=== PATIENT | female | born 1990 | race Caucasian/White ===

== ENCOUNTER 2021-02-16 23:03 | Emergency (ER) | payer OTHER ==
[2021-02-16 23:17] VITALS: BMI 23.3
[2021-02-17 01:12] LABS: EPI CELLS 15 /uL (0-25.1); HYALINE CASTS 16 /uL (0-3.1); URINE APPEARANCE CLOUDY; URINE BACTERIA 2226 /uL (0-1359); URINE BILIRUBIN NEGATIVE (NEGATIVE); URINE COLOR YELLOW; URINE GLUCOSE (UA) NEGATIVE (NEGATIVE); URINE KETONE NEGATIVE (NEGATIVE); URINE LEUK ESTERASE 1+ (NEGATIVE); URINE NITRITE NEGATIVE (NEGATIVE); URINE PROTEIN 2+ (NEGATIVE); URINE RBC 606 /uL (0-23.9); URINE UROBILINOGEN 0.2 mg/dL (0.2-1.0); URINE WBC 723 /uL (0-25.8)
[2021-02-17] MEDS ORDERED: CEPHALEXIN MONOHYDRATE 500 MG CAPSULE (UD) PO ONE (01:18)
[2021-02-17] MEDS ORDERED: CEPHALEXIN MONOHYDRATE 500 MG CAPSULE (UD) ONE (01:26)
[2021-02-17 01:39] VITALS: BP 109/65; PULSE 78; TEMP 97.7
== END 2021-02-17 01:50 | disposition home or self-care (01) ==
LOC: JER 23:03
DX: N39.0 Urinary tract infection, site not specified (principal)
CPT/HCPCS: 81003; 84703; 87086; 87186; 99283-25